=== PATIENT | female | born 1955 | race African-American/Black ===

== ENCOUNTER 2017-11-30 10:05 | Outpatient (CLI) | payer OTHER | END 2017-11-30 10:06 | disposition home or self-care (01) | LOC: BICMAMMO 10:05 | PROVIDERS: ATTEND Obstetrics & Gynecology | DX: Z12.31 Encounter for screening mammogram for malignant neoplasm of breast (principal); Z80.3 Family history of malignant neoplasm of breast | CPT/HCPCS: 77063; 77067 ==

== ENCOUNTER 2018-06-12 09:59 | Outpatient (CLI) | payer OTHER ==
[2018-06-12] MEDS ORDERED: ISOVUE-370 76%-LOCM 1 ML ONE (11:43)
--- NOTE | 2018-06-12 19:28 | CT ---
ABDOMEN CT WITH AND WITHOUT CONTRAST CT PELVIS WITH AND WITHOUT CONTRAST 06/12/18 HISTORY: Microscopic hematuria. FINDINGS: Chronic changes in the lung bases. Heart size is enlarged. No significant pericardial fluid. The descending thoracic aorta and abdominal aorta have a normal caliber. No periaortic fat stranding. Surgically absent gallbladder. Portal vein is patent. Liver, spleen, pancreas, and adrenal glands are unremarkable. No gastrohepatic, retrocrural or periportal lymphadenopathy. No mesenteric mass, lymphadenopathy, free air or free fluid. Limited evaluation of the alimentary canal due to lack of oral contrast. No evidence of bowel obstruc tion. There is no evidence of nephrolithiasis. Symmetric attenuation of the kidneys. No enhancing masses. T here is symmetric excretion into a normal appearing and intra and extrarenal collecting system. Bilat erally, no obstructive uropathy. CT PELVIS: Uterus and right adnexa are unremarkable. Probable septated complex cystic lesion in the left adnexal measuring 4.0 x 5.5 cm. RESEARCH SOIL SCIENTIST consultation is recommended. Contrast opacifies the urinary bladder. The dependent portion is unremarkable. There is no pelvic lymphadenopathy, free air or free fluid. No lytic or blastic lesions in the osseous structures. IMPRESSION: 1. No evidence of obstructive uropathy or enhancing masses. 2. Left adnexal lesion probably representing a septated cyst which is atypical for a patient of this age. RESEARCH SOIL SCIENTIST consultation is recommended to exclude a possible cyst adenoma of the left ovary. Code T POS: [facility]
== END 2018-06-12 10:00 | disposition home or self-care (01) ==
LOC: BICCT 09:59
PROVIDERS: ATTEND Urology
DX: R31.29 Other microscopic hematuria (principal); N83.8 Other noninflammatory disorders of ovary, fallopian tube and broad ligament
CPT/HCPCS: 74178

== ENCOUNTER 2019-03-06 10:40 | Outpatient (CLI) | payer OTHER ==
--- NOTE | 2019-03-06 11:46 | MMO ---
Bilateral MAMMO Bilat Screen [facility]. CLINICAL HISTORY: Patient is 64 years old and is seen for screening. The patient has the following family history of breast cancer: mother, at age 75. The patient has no personal history of cancer. VIEWS: The views performed were: bilateral craniocaudal with tomosynthesis and bilateral mediolateral oblique with tomosynthesis. FILMS COMPARED: The present examination has been compared to a prior imaging study performed at [facility] on 11/30/2017. MAMMOGRAM FINDINGS: There are scattered fibroglandular densities. There are no suspicious masses, suspicious calcifications, or new areas of architectural distortion. IMPRESSION: THERE IS NO MAMMOGRAPHIC EVIDENCE OF MALIGNANCY. A ROUTINE FOLLOW-UP MAMMOGRAM IN 1 YEAR IS RECOMMENDED. THE RESULTS OF THIS EXAM WERE SENT TO THE PATIENT. ACR BI-RADS Category 1 - Negative MAMMOGRAPHY NOTE: 1. A negative mammogram report should not delay a biopsy if a dominant of clinically suspicious mass is present. 2. Approximately 10% to 15% of breast cancers are not detected by mammography. 3. Adenosis and dense breasts may obscure an underlying neoplasm. Reported by: MITCHELL CONDE MD Electonically Signed: [id number]
== END 2019-03-06 10:41 | disposition home or self-care (01) ==
LOC: BICMAMMO 10:40
PROVIDERS: ATTEND Obstetrics & Gynecology
DX: Z12.31 Encounter for screening mammogram for malignant neoplasm of breast (principal); Z80.3 Family history of malignant neoplasm of breast
CPT/HCPCS: 77063; 77067

== ENCOUNTER 2019-06-10 05:58 | Day surgery (SDC) | payer OTHER ==
--- NOTE | 2019-06-05 12:12 | HP ---
She is scheduled for surgery on June 10. HISTORY OF PRESENT ILLNESS: This is a 64-year-old female, G1, P1, prior vaginal delivery who was undergoing hematuria workup with Urology Service this summer. CAT scan of the abdomen was performed for the hematuria workup, which did show a complex left adnexal ovarian cyst. For this, she was referred to gynecology and was signed by Dr. Esquivel. She was evaluated for this left ovarian cyst, it was approximately 5 cm with 1 single septation. She had negative CA-125 level of 9.8 and negative CA-19-9 level that was 1. 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 The patient does report some discomfort in left lower quadrant, which she notices more when exercising or moving in certain directions. She denies any postmenopausal bleeding or any change in bowel habits. PAST MEDICAL HISTORY: Otherwise negative. PAST SURGICAL HISTORY: She has had a laparoscopic cholecystectomy in the past. ALLERGIES: SHE HAS ALLERGIES TO MACROLIDE ANTIBIOTICS, MAINLY SIDE EFFECTS OF NAUSEA AND VOMITING. CURRENT MEDICATIONS: Fish oil supplements and a multivitamin. PRIMARY CARE PROVIDER: Melvin Elias MD FAMILY HISTORY: Significant for mother with hypertension and diabetes and breast cancer at the age of 75. Her sister has hypertension and lung cancer in the past. Father has head and neck cancer with pharyngeal cancer. SOCIAL HISTORY: She is a nonsmoker. No excessive alcohol drinking noted. PHYSICAL EXAMINATION: GENERAL: The patient's height is 5 feet 2 inches, weight 158, BMI 28.9, blood pressure 124/70, pulse 71, respiration 18, O2 saturation room air 97%. HEENT: Within normal limits. CHEST: Clear to auscultation. HEART: Regular rate and rhythm. S1 and S2 heart sounds. No murmurs, rubs, or gallops. ABDOMEN: Soft, nontender, and nondistended. She has well-healed trocar sites in the upper abdomen from prior laparoscopic cholecystectomy. PELVIC: Vulva and vagina had no lesions. Cervix had no visible lesions. Cervical os seen stenotic and atrophic consistent with menopausal state. Uterus was small and nontender. Right adnexa nontender with no masses. Left adnexa, there was fullness in the left side with some tenderness to deep palpation. ASSESSMENT: This is a 64-year-old female with persistent left ovarian complex cyst with normal tumor markers. She also has history of HPV viral type 16 infection. PLAN: Plan is for definitive surgical therapy with a robotic JOVITA-BSO. This is scheduled for June 10. Risks and benefits of procedure have been discussed in detail. She is set for surgery. Job ID: [id number]
[2019-06-05 12:56] VITALS: BMI 29.2
[2019-06-05 14:37] LABS: Hemoglobin 13.7 g/dL (12.0-16.0); Mean Corpuscular HGB CONC 33.6 g/dL (32.0-36.0); Mean Corpuscular Volume 92.4 fL (78.0-98.0); Mean Platelet Volume 6.5 fL (7.4-10.4); Platelet Count 351 thou/uL (130-400); RBC Distribution Width 12.2 % (11.5-14.5); Red Blood Cell (RBC) Count 4.41 mill/uL (4.20-5.40); White Blood Cell (WBC) Count 4.2 thou/uL (4.8-10.8)
[2019-06-10] MEDS ORDERED: Fentanyl 100 MCG/2 ML VIAL ONE ×2 (06:06→08:25)
[2019-06-10] MEDS ORDERED: Famotidine/PF 20 mg/2ml Vial ONE (06:12)
[2019-06-10] MEDS ORDERED: Gabapentin 300 MG CAP ONE (06:12)
[2019-06-10] MEDS ORDERED: CeleCOXIB 100 MG CAP ONE (06:12)
[2019-06-10] MEDS ORDERED: Bupivacaine HCl 0.5%/Epinephrine 1:200,000/PF 30 ml Vial ONE (06:56)
[2019-06-10] MEDS ORDERED: diphenhydrAMINE 25 MG CAP PO PRN (09:14)
[2019-06-10] MEDS ORDERED: Zolpidem Tartrate 5 MG TAB PO PRN (09:14)
[2019-06-10] MEDS ORDERED: Bisacodyl 10 MG SUPP PR PRN (09:14)
[2019-06-10] MEDS ORDERED: Simethicone Chewable 80 MG TAB PO PRN (09:14)
[2019-06-10] MEDS ORDERED: traMADol HCl 50 MG TAB PO PRN ×2 (09:14)
[2019-06-10] MEDS ORDERED: Promethazine HCl 25 MG/ML VIAL IM PRN (09:14)
[2019-06-10] MEDS ORDERED: Morphine 4 MG/ML VIAL SLOW IVP PRN (09:14)
[2019-06-10] MEDS ORDERED: Ondansetron PF 4 MG/2 ML Vial IVP PRN (09:14)
--- NOTE | 2019-06-10 10:32 | OP ---
DATE OF PROCEDURE: 06/10/2019 PREOPERATIVE DIAGNOSES: 1. Persistent left complex adnexal cyst 5 cm. 2. Persistent HPV type 16 cervical infection. POSTOPERATIVE DIAGNOSES: 1. Persistent left complex adnexal cyst 5 cm. 2. Persistent HPV type 16 cervical infection. 3. Subserosal uterine fibroids. PROCEDURES PERFORMED: Robotic total laparoscopic hysterectomy and bilateral salpingo-oophorectomy. WELFARE PROJECT MANAGER: Maranda Mancera PA-C ANESTHESIA: General endotracheal. ESTIMATED BLOOD LOSS: Less than 25 mL. FINDINGS: 1. Cystic left ovarian mass with smooth capsule noted with some filmy adhesions to the left pelvic sidewall status post adhesiolysis. 2. Normal postmenopausal right fallopian tube and ovary and uterus with small subserosal uterine fibroids noted. This pathology is uterus, cervix, bilateral fallopian tubes and ovaries. In addition to the findings, the bladder was watertight to fluid distention over 300 mL postprocedure along with bilateral ureteral peristalsis visualized postprocedure. DESCRIPTION OF OPERATIVE PROCEDURES: The patient previously received informed consent in regard to surgery. She was taken back to the operating room, where she received a general endotracheal anesthetic agent without complications. She was placed in the dorsal lithotomy position with use of Jayme stirrups, prepped and draped in usual sterile fashion. A side-arm speculum was placed in the vagina at this time. The uterus was grasped with single-tooth tenaculum. The uterus sounded to 7 cm. A size 6 cm MARY uterine manipulator with 3.0 cervical cup was fitted in place. Tenaculum and speculum had been removed and Jensen catheter had been placed during this process. Attention was then turned to the abdomen, where perspective trocar sites were infiltrated with 0.5% Marcaine with epinephrine. A 12 mm infraumbilical incision was made and Veress needle was entered into the peritoneal cavity. The patient's pressure was noted to be less than 5 mm. The abdomen was insufflated with the patient's pressure of 15 approximately 4.5 L of carbon dioxide gas. A 12 mm trocar was then placed through the infraumbilical incision. The laparoscope was introduced through the trocar sleeve confirming proper entry. Additional bilateral lower quadrant 8 mm trocars were placed under laparoscopic guidance along with the right upper quadrant and 11 mm clinical trials assistant port. The patient was placed in more Trendelenburg position and the robot was docked. I then proceeded to break scrub and carry out the procedure from the operative console while my assistants remained at the bedside. The uterus was elevated from the pelvis. The left fallopian tube was grasped by my clinical trials assistant. I proceeded to dissect the filmy adhesions with monopolar scissors off from the pelvic sidewall and posterior cul-de-sac, freeing the left adnexal mass away from the pelvic sidewall. This enabled me to identify the iliac vessels and the location of the ureter inferior to the IP ligament. The IP ligament was then coagulated, hugging close to the specimen away from the pelvic sidewall. It was coagulated and transected. Serial coagulation of broad ligament was carried out around the adnexal mass coagulating and transecting this and also dissecting both sharply and bluntly, freeing the adnexal mass again pulling this medial from the pelvic sidewall. The left round ligament was reached. It was coagulated and transected and the anterior leaf of the broad ligament was entered developing this plane, again pushing the mass and the uterus away from the left pelvic sidewall. The right fallopian tube was then grasped by my clinical trials assistant. The right IP ligament was coagulated, hugging close to the right ovary and noted the ureter to be inferior to this area. It was transected and serial coagulation of the broad ligament hugging close to uterus was carried out. Coagulation transection to the right lateral round ligament was reached. It again was coagulated and transected. The anterior leaf of the broad ligament was entered. Vesicouterine peritoneum reflection was dissected in a layering technique dropping the bladder atraumatically past the cervical vaginal angles. The right uterine vessels again were skeletonized and they were coagulated in the internal cervical os region. The vesicouterine peritoneal incision was carried around again to the left side, where this was completed to the left uterine vessels. The posterior cul-de-sac was inspected. The posterior colpotomy was then made from 6 to 3 and 6 to 9 o'clock fashion, while my clinical trials assistant held the adnexal mass out of the operative field. We then distended the bladder prior to the anterior colpotomy and there was noted to be well below the anticipated colpotomy site. It was deflated. The monopolar scissors were then used to complete the anterior colpotomy from 12 to 3 and 12 to 9 o'clock position while the vessels were coagulated intermittently with bipolar fenestrated cautery. The specimen was then released. The specimen and the adnexal cyst were then atraumatically brought into the vaginal vault intact. They were removed and then, the pneumoperitoneum was recreated with the manipulator balloon. The vaginal cuff was coagulated any oozing areas of bipolar fenestrated cautery. The Osmany needle medical driver had been exchanged for the monopolar scissors. A Stratafix suture was brought in by my clinical trials assistant and I closed the cuff of the vagina in full-thickness closure starting from the right angle to the left angle back towards the right angle. The excess suture was trimmed and the needle and suture were brought up through the clinical trials assistant port. The pelvis was irrigated and suctioned. Pedicle sites were confirmed to be hemostatic. Bilateral ureteral peristalsis visualized. The bladder was draining clear urine in the Jensen catheter. The robot was undocked. The trocar sleeves were removed. I then proceeded to rescrub and I placed a [id number] suture of 0 Vicryl in the fascial defect in the umbilicus area. The remainder of the trocar sites were closed with 4-0 Monocryl subcuticular and Dermabond. The vaginal vault was inspected with a sponge stick and was noted to be hemostatic. The patient was awakened from anesthesia, transferred to recovery room in stable condition. Job ID: [id number]
[2019-06-10] MEDS ORDERED: Lidocaine 1% PF 5 ML VIAL ONE (10:34)
[2019-06-10] MEDS ORDERED: Glycopyrrolate 0.2 MG/ML 5 ML SYRINGE ONE (10:34)
[2019-06-10] MEDS ORDERED: Ondansetron PF 4 MG/2 ML Vial ONE (10:34)
[2019-06-10] MEDS ORDERED: Rocuronium Bromide 10 MG/ML (10ML VIAL) ONE (10:34)
[2019-06-10] MEDS ORDERED: Dexamethasone 20 MG/5 ML VIAL ONE (10:34)
[2019-06-10] MEDS ORDERED: PHENYLEPHRINE-NS 100 MCG/ML 10 ML SYRINGE ONE (10:34)
[2019-06-10] MEDS ORDERED: ePHEDrine/0.9% NaCl/PF SYRINGE 50 mg/10 ml ONE (10:34)
[2019-06-10] MEDS ORDERED: PROPOFOL 200 MG/20 ML VIAL ONE (10:34)
[2019-06-10] MEDS: Acetaminophen 1,000 MG in Premix Bag 1 BAG IVPB SCH ×2 (11:52→18:27)
[2019-06-10] MEDS: Ketorolac Tromethamine 30 MG/ML VIAL IVP SCH ×2 (11:53→18:26)
[2019-06-10] MEDS: Sodium Chloride 0.9% 1,000 ML IV SCH (15:50)
[2019-06-11] MEDS: Sodium Chloride 0.9% 1,000 ML IV SCH ×2 (00:24→01:15)
[2019-06-11] MEDS: Ketorolac Tromethamine 30 MG/ML VIAL IVP SCH (00:25)
[2019-06-11] MEDS: Acetaminophen 1,000 MG in Premix Bag 1 BAG IVPB SCH ×2 (00:27→06:31)
[2019-06-11 05:16] LABS: Hemoglobin 11.6 g/dL (12.0-16.0); Mean Corpuscular HGB CONC 33.7 g/dL (32.0-36.0); Mean Corpuscular Volume 92.1 fL (78.0-98.0); Mean Platelet Volume 6.2 fL (7.4-10.4); Platelet Count 298 thou/uL (130-400); Red Blood Cell (RBC) Count 3.75 mill/uL (4.20-5.40); White Blood Cell (WBC) Count 7.8 thou/uL (4.8-10.8)
[2019-06-11] MEDS ORDERED: Ibuprofen 600 MG TAB PO SCH (06:00)
--- NOTE | 2019-06-11 07:58 | PDOC.EVN ---
Event Note - Event Note Event Note: Tolerating diet. Voiding and ambulating. O:afvss. hct 34.5%. u/O 1800ML abd: SOFT/NON DISTENED. TROCHAR SITES CLEAN AND DRY. A/P:POST OP DAY 1-ROBOTIC TLH/BSO. DOING WELL.D/C HOME F/U 2 AND 6 WEEKS.
[2019-06-11 12:08] VITALS: BP 122/57; TEMP 98.2
--- NOTE | 2019-06-12 05:28 | DIS ---
DATE OF ADMISSION: 06/10/2019 DATE OF DISCHARGE: 06/11/2019 DIAGNOSES: 1. Persistent left complex ovarian cyst. 2. Uterine fibroid. 3. High-risk HPV cervical infection. PROCEDURES PERFORMED: Robotic TLH/BSO. SUMMARY OF HOSPITAL COURSE: Ms Perez is a 64-year-old female who had persistent complex left adnexal cyst and known HPV 16 cervical infection, who proceeded to definitive surgical therapy. She underwent a robotic TLH/BSO on 06/10/2019. Postoperatively, the patient has done well. Her vital signs have remained stable. Her hematocrit is 34.5% on postop day #1. She has been ambulating, voiding, and tolerating a regular diet the evening of postop day zero. Pathology is pending at time of this dictation. She was discharged in the morning of postop day #1 and discharge medications will be tramadol 50 mg q.6 hours p.r.n. pain, [id number] ibuprofen as directed. She has a followup in 2 and 6 weeks postoperatively and pathology will be followed up when available. Job ID: [id number]
== END 2019-06-11 12:00 | disposition home or self-care (01) ==
LOC: SDC 05:58 → 3SE 09:13 → SDC 06-11 12:00
PROVIDERS: ATTEND Obstetrics & Gynecology
DX: D27.1 Benign neoplasm of left ovary (principal); N83.01 Follicular cyst of right ovary; N72 Inflammatory disease of cervix uteri; N80.2 Endometriosis of fallopian tube; D25.2 Subserosal leiomyoma of uterus; R87.810 Cervical high risk human papillomavirus (HPV) DNA test positive; Z79.899 Other long term (current) drug therapy; Z88.1 Allergy status to other antibiotic agents
CPT/HCPCS: 36415; 85027; 86850; 86900; 86901; 88307; 93005; 93010; J0131; J0670; J0690; J1100; J1885; J2001; J2405; J2704; J3010; S0028

== ENCOUNTER 2020-05-25 10:31 | Outpatient (CLI) | payer OTHER ==
--- NOTE | 2020-05-25 14:43 | BD ---
BONE DENSITOMETRY USING DEXA: Date: 05/25/2020 HISTORY: Postmenopausal screening for osteoporosis. FINDINGS: Lumbar Spine: BMD (g/cm2) L1 0.800 T-Score: -1.7 Z-Score: 1.0 L2 0.905 T-Score: -1.1 Z-Score: -0.3 L3 0.888 T-Score: -1.8 Z-Score: -0.9 L4 0.934 T-Score: -1.2 Z-Score: -0.2 L1-L4 0.888 T-Score: -1.4 Z-Score: -0.6 Femoral Neck: 0.747 T-Score: -0.9 Z-Score: -0.2 Total Femur: 0.933 T-Score: -0.1 Z-Score: 0.3 The 10 year fracture risk for a major osteoporotic fracture is 3.2% and for a hip fracture is 0.2%. IMPRESSION: Osteopenia. POS: [facility]
== END 2020-05-25 10:32 | disposition home or self-care (01) ==
LOC: BICMAMMO 10:31
PROVIDERS: ATTEND Family Medicine
DX: Z13.820 Encounter for screening for osteoporosis (principal); M85.88 Other specified disorders of bone density and structure, other site; Z78.0 Asymptomatic menopausal state
CPT/HCPCS: 77080

== ENCOUNTER 2021-04-09 10:59 | Outpatient (CLI) | payer OTHER | END 2021-04-09 11:00 | disposition home or self-care (01) | LOC: BICMAMMO 10:59 | PROVIDERS: ATTEND Family Medicine | DX: Z12.31 Encounter for screening mammogram for malignant neoplasm of breast (principal); Z80.3 Family history of malignant neoplasm of breast | CPT/HCPCS: 77063; 77067 ==

== ENCOUNTER 2022-09-14 06:15 | Day surgery (SDC) | payer BC ==
[2022-09-13 11:22] VITALS: BMI 31.2
[2022-09-14] MEDS ORDERED: Lidocaine 1% PF 5 ML VIAL ONE (08:01)
[2022-09-14] MEDS ORDERED: PROPOFOL 200 MG/20 ML VIAL ONE (08:01)
== END 2022-09-14 09:25 | disposition home or self-care (01) ==
LOC: SDC 06:15
PROVIDERS: ATTEND Internal Medicine Gastroenterology
PROC: 0DBK8ZX Excision of Ascending Colon, Via Natural or Artificial Opening Endoscopic, Diagnostic (ICD-10-PCS; principal; 2022-09-14)
DX: Z12.11 Encounter for screening for malignant neoplasm of colon (principal); D12.4 Benign neoplasm of descending colon; E78.5 Hyperlipidemia, unspecified; Z80.0 Family history of malignant neoplasm of digestive organs; Z79.899 Other long term (current) drug therapy; Z88.1 Allergy status to other antibiotic agents
CPT/HCPCS: 88305; J2704

== ENCOUNTER 2024-04-22 09:53 | Outpatient (CLI) | payer BC, MEDICARE | END 2024-04-22 09:54 | disposition home or self-care (01) | LOC: BICMAMMO 09:53 | PROVIDERS: ATTEND Family Medicine | DX: Z12.31 Encounter for screening mammogram for malignant neoplasm of breast (principal); Z78.0 Asymptomatic menopausal state; M85.89 Other specified disorders of bone density and structure, multiple sites; Z80.3 Family history of malignant neoplasm of breast | CPT/HCPCS: 77063; 77067; 77080 ==